=== PATIENT | female | born 1970 | race Caucasian/White ===

== ENCOUNTER 2017-03-09 15:43 | Inpatient (IN) ==
[2017-03-09 16:32] LABS: MANUAL DIFF NEEDED? NO
[2017-03-09 16:41] LABS: HEMATOCRIT 28.7 % (37.0-47.0); HEMOGLOBIN 9.2 g/dL (12.0-16.0); IMM GRAN# 0.02 X1000 (0.0-0.04); IMM GRAN% 0.2 % (0.0-0.5); LYMPH# 2.91 X1000 (1.2-3.4); LYMPH% 28.5 % (20.5-51.1); MCH 31.6 PG (27-31); MCHC 32.1 g/dL (33-37); MCV 98.6 FL (81-99); MONO# 0.76 X1000 (0.11-0.59); MONO% 7.4 % (1.7-9.3); MPV 10.4 FL (7.4-10.4); NEUT% 60.9 % (42.2-75.2); PLT 482 X1000 (130-400); RBC 2.91 XMIL (4.2-5.4)
[2017-03-09 16:49] LABS: UR BARBITUATES QUAL NONE DETECTED (NONE DETECT); UR COCAINE QUAL NONE DETECTED (NONE DETECT); UR METHADONE QUAL NONE DETECTED (NONE DETECT); UR OPIATES QUAL NONE DETECTED (NONE DETECT); UR OXYCODONE QUAL PRESUMPTIVE POSITIVE (NONE DETECT); UR PCP QUAL NONE DETECTED (NONE DETECT)
[2017-03-09] MEDS ORDERED: NS 1,000 ML IV ONE ×2 (16:55→16:56)
[2017-03-09] MEDS ORDERED: M.V.I.-12 10 ML, FOLIC ACID 1 MG, MAGNESIUM SULFATE 1 GM, THIAMINE 100 MG in NS 1,000 ML IV ONE (16:55)
[2017-03-09] MEDS ORDERED: D50W SYRINGE IV ONE (16:57)
[2017-03-09 16:58] LABS: ACETAMINOPHEN < 1.2 ug/mL (10-30); AGAP 16; ALBUMIN 3.3 g/dL (3.5-5.0); ALKALINE PHOSPHATASE 92 U/L (32-104); BUN 9 mg/dL (8-22); CALCIUM 8.4 mg/dL (8.8-10.2); CHLORIDE 102 mmol/L (98-107); COSMO 271; GOT 25 U/L (10-30); GPT 18 U/L (10-36); POTASSIUM 3.2 mmol/L (3.5-5.1); SODIUM 138 mmol/L (136-145); TCO2 20 mmol/L (25-35); TOTAL BILIRUBIN 0.18 mg/dL (0.20-1.00)
[2017-03-09] MEDS ORDERED: NS 1,000 ML ONE (16:58)
[2017-03-09] MEDS ORDERED: D50W SYRINGE ONE (16:58)
--- NOTE | 2017-03-09 17:45 | Diag Imaging Result Doc PS360 ---
EXAM: SHOULDER-RIGHT HISTORY: fell TECHNIQUE: Right shoulder three views with scapular Y view COMMENT: There is a flake of bone or calcification in the AC joint which is widened. This most likely represents a grade 2 AC joint separation with a avulsion. The head: Old clavicular ligaments are apparently intact. The glenohumeral joint is intact. IMPRESSION: AC separation. Electronically signed by Henry White 03/09/2017 5:43 PM
--- NOTE | 2017-03-09 17:54 | Diag Imaging Result Doc PS360 ---
EXAM: HEAD W/O CONTRAST HISTORY: fell TECHNIQUE: CT of the head without contrast COMMENT: There is no evidence of acute cardiac or pulmonary disease. Compared to 03/25/2013 there is been no significant change in the appearance of the brain. The calvarium appears to be intact. IMPRESSION: No evidence of acute intracranial disease. Electronically signed by Henry White 03/09/2017 5:51 PM
--- NOTE | 2017-03-09 17:59 | Diag Imaging Result Doc PS360 ---
EXAM: FACIAL BONES W/O CONTRAST HISTORY: fell TECHNIQUE: CT of the facial bones at 0.75 mm with coronal reconstruction COMMENT: there is deformity of the left lamina papyracea on. There are no fluid collections in the ethmoid sinuses, and this is old. Otherwise the paranasal sinuses are clear. There is apparent deformity of the floor of the left orbit which is also old. Both abnormalities were present on previous CT of the head dated 03/25/2013. The mandible is intact. There is what appears to be chronic deformity of the mandibular condyle on the left. IMPRESSION: Old fractures of the lamina papyracea and orbital floor on the left. No evidence of acute bony disease. Electronically signed by Henry White 03/09/2017 5:56 PM
[2017-03-09] MEDS ORDERED: ROCEPHIN 1 GM/NS 1 GM/50 ML IVPB IV ONE (18:00)
[2017-03-09 18:02] LABS: UR AMPHETAMINES QUAL PRESUMPTIVE POSITIVE (NONE DETECT)
[2017-03-09 18:04] LABS: UR BENZODIAZEPIN QUAL PRESUMPTIVE POSITIVE (NONE DETECT); UR CANNABINOIDS QUAL PRESUMPTIVE POSITIVE (NONE DETECT)
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
[2017-03-09] MEDS ORDERED: TORADOL IV ONE (20:12)
[2017-03-09] MEDS ORDERED: D50W SYRINGE IV PRN (20:58)
[2017-03-09] MEDS ORDERED: ZOFRAN IV PRN (20:58)
[2017-03-09] MEDS ORDERED: KLOR-CON PO ONE (20:58)
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
[2017-03-09] MEDS: NORCO-7.5 PO PRN (21:36)
[2017-03-09] MEDS ORDERED: POTASSIUM CHLORIDE 20 MEQ, MAGNESIUM SULFATE 2 GM, THIAMINE 100 MG, FOLIC ACID 1 MG, M.... IV SCH ×6 (23:00)
[2017-03-10] MEDS: NS 1,000 ML IV SCH ×4 (00:06→16:28)
[2017-03-10 06:23] LABS: MANUAL DIFF NEEDED? NO
[2017-03-10 06:53] LABS: BASO% 1.1 % (0.0-0.8); EOS# 0.18 X1000 (0.0-0.7); HEMATOCRIT 25.6 % (37.0-47.0); LYMPH# 1.64 X1000 (1.2-3.4); LYMPH% 36.4 % (20.5-51.1); MCH 30.9 PG (27-31); MCHC 31.3 g/dL (33-37); MCV 98.8 FL (81-99); MONO# 0.45 X1000 (0.11-0.59); MPV 10.9 FL (7.4-10.4); NEUT% 48.5 % (42.2-75.2); PLT 335 X1000 (130-400); RBC 2.59 XMIL (4.2-5.4)
[2017-03-10 07:14] LABS: AGAP 10; BUN 7 mg/dL (8-22); CALCIUM 7.2 mg/dL (8.8-10.2); CHLORIDE 113 mmol/L (98-107); COSMO 283; SODIUM 144 mmol/L (136-145); TCO2 21 mmol/L (25-35)
[2017-03-10] MEDS: NORCO-7.5 PO PRN ×3 (08:08→20:07)
[2017-03-10] MEDS: KLONOPIN PO SCH ×2 (12:04→20:07)
[2017-03-10] MEDS: CELEXA PO SCH (12:04)
[2017-03-10] MEDS: POTASSIUM CHLORIDE 20 MEQ, MAGNESIUM SULFATE 2 GM, THIAMINE 100 MG, FOLIC ACID 1 MG, M.... IV SCH ×6 (16:37)
--- NOTE | 2017-03-10 18:07 | PROGRESS NOTE ---
DATE: 03/10/2017 SUBJECTIVE: This patient states that she is feeling much better. She is tolerating p.o., is not having respiratory distress, nausea, vomiting. No diarrhea. No constipation. No headache. She has been complaining of back pain and this is chronic and she asked for her [place] that she has been taking at home as scheduled. I restarted all her home medications. Also this patient has been asking to increase the dose of [place] and even asking for Ambien during the night. I will keep the patient on [place] 7.5, and I will start this patient on melatonin. OBJECTIVE: Vital Signs: Temperature 97.9 degrees, pulse 49, respiratory rate 14, blood pressure 144/71. Oxygen saturation 98 on room air. HEENT: Head normocephalic. She has right eye hematoma and also excoriation at the level of the left temporal area. Neck: Supple. No JVD. No masses. Central trachea. Chest: Clear to auscultation. No wheezing. No rales. Abdomen: Soft, nontender, nondistended. No hepatosplenomegaly. Extremities: No edema. No clubbing. No cyanosis. Neurological: The patient is alert and oriented x3. No focal deficits. LABORATORY: WBC 4.5, hemoglobin 8, hematocrit 25.6, platelets 335,000. Sodium 144, potassium 4, chloride 113, bicarbonate 21, BUN , creatinine 0.6, glucose 74, calcium 7.2. ASSESSMENT AND PLAN: 1. Hypoglycemia. This is getting better. She is tolerating p.o. and she feels much better. As per the patient, she does not have any problem with alcohol, she states that she drinks a cup of wine sporadically, but she takes every day pain medication for her back. Apparently she gets the pain medication from her primary care doctor, she used to be in a pain clinic but not any more. 2. Alcohol intoxication. Continue with banana bag, she is still getting IV fluids, as per the patient, she does not have any problem with alcohol. She takes just 1 cup of wine but not frequently. 3. Chronic pain. I put this patient back on her pain medication because she was having pain. At this moment, she is stable. 4. Iron deficiency anemia. Continue to monitor. 5. Hypokalemia resolved. 6. Right shoulder injury. We will monitor. She is not complaining of pain at this moment. 7. Anxiety. I would continue with her home . 8. Depression. Continue with home medication. 9. Panic attacks. Again continue with home medication. cc: Murphy Kuo MD
[2017-03-10] MEDS: MELATONIN PO SCH (20:07)
[2017-03-11] MEDS: NORCO-7.5 PO PRN ×3 (03:35→20:46)
[2017-03-11 05:58] LABS: MANUAL DIFF NEEDED? NO
[2017-03-11 06:15] LABS: AGAP 8; BUN 10 mg/dL (8-22); CALCIUM 7.4 mg/dL (8.8-10.2); CHLORIDE 110 mmol/L (98-107); COSMO 275; POTASSIUM 4.3 mmol/L (3.5-5.1); SODIUM 138 mmol/L (136-145); TCO2 20 mmol/L (25-35)
[2017-03-11 06:20] LABS: EOS# 0.28 X1000 (0.0-0.7); EOS% 4.5 % (0.0-10.0); HEMATOCRIT 27.1 % (37.0-47.0); HEMOGLOBIN 8.2 g/dL (12.0-16.0); LYMPH# 1.93 X1000 (1.2-3.4); LYMPH% 31.3 % (20.5-51.1); MCH 30.9 PG (27-31); MCHC 30.3 g/dL (33-37); MCV 102.3 FL (81-99); MONO# 0.68 X1000 (0.11-0.59); MPV 10.9 FL (7.4-10.4); NEUT% 52.2 % (42.2-75.2); PLT 280 X1000 (130-400); RBC 2.65 XMIL (4.2-5.4)
[2017-03-11] MEDS: KLONOPIN PO SCH ×3 (09:27→20:38)
[2017-03-11] MEDS: CELEXA PO SCH (09:28)
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
[2017-03-11] MEDS: NS 1,000 ML IV SCH ×2 (11:05→17:13)
[2017-03-11] MEDS ORDERED: MAALOX PLUS LIQUID PO PRN (12:29)
[2017-03-11] MEDS: BACTROBAN OINTMENT TOP SCH ×2 (12:36→20:47)
[2017-03-11] MEDS: POTASSIUM CHLORIDE 20 MEQ, MAGNESIUM SULFATE 2 GM, THIAMINE 100 MG, FOLIC ACID 1 MG, M.... IV SCH ×6 (17:13)
[2017-03-11] MEDS: MELATONIN PO SCH (20:38)
[2017-03-12] MEDS: NS 1,000 ML IV SCH ×3 (01:20→12:11)
[2017-03-12] MEDS: NORCO-7.5 PO PRN ×3 (02:35→13:24)
[2017-03-12] MEDS: KLONOPIN PO SCH ×2 (08:36→13:24)
[2017-03-12] MEDS: CELEXA PO SCH (08:36)
[2017-03-12] MEDS: BACTROBAN OINTMENT TOP SCH (08:37)
--- NOTE | 2017-03-12 08:38 | PROGRESS NOTE ---
DATE: 03/12/2017 SUBJECTIVE: She feels pretty good. She wants to go home. She feels like she can get her wound VAC on her right arm, that should be ready to go. That is her understanding anyway. OBJECTIVE: Vital Signs: Temperature 97.8, pulse 46, respirations 18, blood pressure 158/89. Eyes: Pupils are equal, round. Lungs: Are clear in all lung streeter. Cardiovascular: Regular rhythm and rate without murmur or S3. Abdomen: Soft. Skin: Warm and dry. : Urine output 2800 mL. LAB: Reviewed from yesterday. Hemoglobin 8.2, hematocrit 27 which is stable. Blood sugars 84, 85, 102, 89, so normal sugars. ASSESSMENT AND PLAN: 1. Hypoglycemia, which is improved. P.o. intake is improved. 2. Alcohol intoxication, which is resolved. 3. Possible delirium tremens, which is resolved. 4. Chronic pain. Well controlled at this point. 5. Iron deficiency anemia on iron supplement. 6. Hypokalemia on supplement. 7. Right shoulder injury which she had obtained from a fall. No fractures. 8. Anxiety on Klonopin. 9. Depression. Continue present medication. 10. History of panic attacks. 11. We will see if we can get her wound VAC applied. Wound care is involved. cc: Jose Farr MD
[2017-03-12 09:56] VITALS: BP 153/96
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
== END 2017-03-12 13:26 | disposition home health service (06) ==
LOC: 4N 15:43 → ED 15:43 → OBSVTOIN 20:38 → SUATTDRO 20:38
PROVIDERS: ATTEND Emergency Medicine